=== PATIENT | female | born 1965 | race Caucasian/White ===

== ENCOUNTER → 2017-12-04 | Outpatient (CLI) | payer BC | LOC: MC.RAD 13:53 | DX: Z12.31 Encounter for screening mammogram for malignant neoplasm of breast (principal); N64.89 Other specified disorders of breast ==

== ENCOUNTER → 2017-12-05 | Outpatient (CLI) | payer BC | LOC: MC.RAD 14:00 | DX: N64.89 Other specified disorders of breast (principal) ==

== ENCOUNTER → 2019-02-03 | Outpatient (CLI) | payer BC | LOC: MC.RAD 07:15 | DX: Z12.31 Encounter for screening mammogram for malignant neoplasm of breast (principal) ==

== ENCOUNTER → 2020-12-09 | Outpatient (CLI) | payer OTHER ==
[~2020-12-09] MED LIST: BENADRYL25 M2 PO
== END ==
LOC: MC.RAD 06:56
DX: Z12.31 Encounter for screening mammogram for malignant neoplasm of breast (principal)

== ENCOUNTER 2021-01-13 08:13 | Day surgery (SDC) | payer OTHER ==
[~2021-01-13] VITALS: Ht 157.5 cm; Wt 76.4 kg
[2021-01-13] MEDS ORDERED: BENADRYL25 M2 PO (08:52)
[2021-01-13 08:59] VITALS: BP 106/72; PULSE 68; TEMP 98.5
[2021-01-13 10:10] VITALS: BP 92/54; PULSE 69; TEMP 97.7
[2021-01-13 10:25] VITALS: BP 90/69; PULSE 57
[2021-01-13 10:40] VITALS: BP 92/67; PULSE 62
--- NOTE | 2021-01-13 11:05 | NUR ---
1010 PATIENT ARRIVES TO [facility] 5 VIA CART. AMBULATES TO CHAIR WITH 1:1 ASSIST. WARM BLANKET GIVEN FOR COMFORT. VSS. 1025 PATIENT TAKING MUFFIN, WATER AND COFFEE PO. TOLERATING WELL. VSS. PATIENT DENIES COMPLAINT. 1040 IV D/C'D. CATH INTACT. VERBAL AND WRITTEN D/C INSTRUCTIONS GIVEN TO PATIENT. PATIENT VERBALIZES UNDERSTANDING. PATIENT DRESSES SELF IN PERSONAL CLOTHING. 1049 PATIENT D/C'D TO POV VIA W/C WITH .
== END 2021-01-13 10:49 | disposition home or self-care (01) ==
LOC: SDCO 08:13
DX: Z12.11 Encounter for screening for malignant neoplasm of colon (principal); K63.5 Polyp of colon; G47.33 Obstructive sleep apnea (adult) (pediatric); E66.9 Obesity, unspecified; F41.9 Anxiety disorder, unspecified; Z20.822 Contact with and (suspected) exposure to COVID-19; Z87.891 Personal history of nicotine dependence
CPT/HCPCS: J2704; J7030

== ENCOUNTER → 2022-03-21 | Outpatient (CLI) | payer OTHER | LOC: MC.RAD 13:06 | DX: Z12.31 Encounter for screening mammogram for malignant neoplasm of breast (principal) ==

== ENCOUNTER → 2023-04-27 | Outpatient (CLI) | payer BC | LOC: CANSCHCLI → MC.RAD 07:28 → COL.RAD 07:28 → MC.RAD 08:00 | DX: Z12.31 Encounter for screening mammogram for malignant neoplasm of breast (principal) ==

== ENCOUNTER → 2024-01-24 | Outpatient (CLI) | payer BC | LOC: COL.RAD 07:15 | DX: Z12.2 Encounter for screening for malignant neoplasm of respiratory organs (principal); F17.200 Nicotine dependence, unspecified, uncomplicated ==

== ENCOUNTER → 2024-04-28 | Outpatient (CLI) | payer BC | LOC: MC.RAD 07:00 | DX: Z12.31 Encounter for screening mammogram for malignant neoplasm of breast (principal) ==

== ENCOUNTER → 2024-05-08 | Outpatient (CLI) | payer BC | LOC: COL.VAS 08:25 | DX: I07.1 Rheumatic tricuspid insufficiency (principal); Z82.49 Family history of ischemic heart disease and other diseases of the circulatory system ==